=== PATIENT | female | born 2000 | race Caucasian/White ===

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

== ENCOUNTER 2019-06-26 10:58 | Emergency (ER) | payer OTHER ==
[~2019-06-26 10:58] MED LIST changes: +PRED-220 PO
[2019-06-26 11:04] VITALS: BP 143/76
[2019-06-26] MEDS ORDERED: IPRATRPIUM/ALBUTEROL 0.5/2.5MG 3 ML NEBU. NEB ONE (11:40)
--- NOTE | 2019-06-26 12:10 | PHYS DOC ---
Past History Past Medical History: Asthma, Depression, Other Past Surgical History: No Surgical History Alcohol Use: None Drug Use: None Adult General Chief Complaint Chief Complaint: SHORTNESS OF BREATH HPI HPI 19-year-old female presents with shortness of breath. The patient is 9 months . Due to deliver in 24 days. She has a history of asthma. She presents today because she's been feeling short of breath since yesterday. She has tried her albuterol MDI and her nebulizer. She is not feeling any better and wonders if she needs to do something different. She has not talked to her OB because it is the weekend. She denies any vaginal bleeding or contractions. Denies fever or chills. Denies fever or chills. Review of Systems Review of Systems Constitutional: Denies fever or chills [] Eyes: Denies change in visual acuity, redness, or eye pain [] HENT: Denies nasal congestion or sore throat [] Respiratory: shortness of breath [] Cardiovascular: No additional information not addressed in HPI [] GI: Denies abdominal pain, nausea, vomiting, bloody stools or diarrhea [] : Denies dysuria or hematuria [] Musculoskeletal: Denies back pain or joint pain [] Integument: Denies rash or skin lesions [] Neurologic: Denies headache, focal weakness or sensory changes [] Endocrine: Denies polyuria or polydipsia [] All other systems were reviewed and found to be within normal limits, except as documented in this note. Current Medications Current Medications Current Medications Medications (Trade) Dose Ordered Sig/Alex Start Time Stop Time Status Last Admin Dose Admin Albuterol/ Ipratropium (Duoneb) 3 ml 1X ONCE 06/26/19 11:40 06/26/19 11:41 DC 06/26/19 11:20 3 ML Methylprednisolone Sodium Succinate (SOLU-Medrol 125MG VIAL) 125 mg 1X ONCE 06/26/19 12:15 06/26/19 12:16 UNV Allergies Allergies Allergies Coded Allergies Type Severity Reaction Last Updated Verified cat dander Allergy Unknown 09/30/18 Yes Physical Exam Physical Exam Constitutional: Well developed, well nourished, no acute distress, non-toxic appearance. [] HENT: Normocephalic, atraumatic, bilateral external ears normal, oropharynx moist, no oral exudates, nose normal. [] Eyes: PERRLA, EOMI, conjunctiva normal, no discharge. [] Neck: Normal range of motion, no tenderness, supple, no stridor. [] Cardiovascular:Heart rate regular rhythm, no murmur [] Lungs & Thorax: End expiratory wheezing at the bilateral bases[] Abdomen: Bowel sounds normal, soft, no tenderness, no masses, no pulsatile masses. [] Skin: Warm, dry, no erythema, no rash. [] Back: No tenderness, no CVA tenderness. [] Extremities: No tenderness, no cyanosis, no clubbing, ROM intact, no edema. [] Neurologic: Alert and oriented X 3, normal motor function, normal sensory function, no focal deficits noted. [] Psychologic: Affect normal, judgement normal, mood normal. [] Current Patient Data Vital Signs Vital Signs Date Time Temp Pulse Resp B/P (MAP) Pulse Ox O2 Delivery O2 Flow Rate FiO2 06/26/19 11:04 98.4 137 26 90 Room Air EKG EKG [] Radiology/Procedures Radiology/Procedures [] Course & Med Decision Making Course & Med Decision Making Pertinent Labs and Imaging studies reviewed. (See chart for details) The patient was given a DuoNeb treatment in the ED. This did help with her congestion as well as improving her symptoms of shortness of breath. We discuss ed treatment options such as Adderall every 4 hours and see how it goes, a single dose of Solu-Medrol in the ED followed by albuterol treatments, or 3 days of prednisone treatment. We discussed potential risks with , but the patient is at term and these risks are less likely. Patient has elected for single shot of Solu-Medrol and will continue her albuterol at home. We have given this medication. She is stable for discharge at this time. She will call her OBs office and inform them of this visit. [] Dragon Disclaimer Dragon Disclaimer This electronic medical record was generated, in whole or in part, using a voice recognition dictation system. Departure Departure: Impression: Primary Impression: Asthma exacerbation Additional Impression: Disposition: HOME, SELF-CARE Condition: STABLE Referrals: DANN GONZALEZ (PCP) Patient Instructions: Asthma, Adult, [id number] Problem Qualifiers Primary Impression: Asthma exacerbation Asthma severity: mild Asthma persistence: intermittent Qualified Codes: J45.21 - Mild intermittent asthma with (acute) exacerbation Additional Impression: Weeks of gestation: 36 weeks Qualified Codes: Z3A.36 - 36 weeks gestation of MARVEL LUNDBERG DO Jun 26, 2019 12:10
[2019-06-26] MEDS ORDERED: methylPREDNISolone SOD SUCC PF 125 MG/2 ML VIAL. IM ONE (12:30)
== END 2019-06-26 12:00 | disposition home or self-care (01) ==
LOC: ER 11:10
DX: O99.513 Diseases of the respiratory system complicating pregnancy, third trimester (principal); J45.21 Mild intermittent asthma with (acute) exacerbation; Z91.048 Other nonmedicinal substance allergy status; Z3A.36 36 weeks gestation of pregnancy
CPT/HCPCS: 94640; 96372; 99283; J2930; J7620